=== PATIENT | male | born 1980 | race Caucasian/White ===

== ENCOUNTER 2017-11-26 17:59 | Emergency (ER) | payer MEDICAID, OTHER ==
[2017-11-26] MEDS ORDERED: Levofloxacin 750 MG Tab ONE (21:33)
--- NOTE | 2017-11-26 22:09 | EDM.PDOC ---
ED HPI GENERAL MEDICAL PROBLEM - General Chief Complaint: Fever Stated Complaint: Cough, cold symptoms for many weeks Time Seen by Provider: 11/26/17 21:10 Source of Information: Reports: Patient History Limitations: Reports: No Limitations - History of Present Illness INITIAL COMMENTS - FREE TEXT/NARRATIVE: This is a 37yo M here for concerns of fever and chills, decreased appetite and feeling unwell for the past month. The symptoms have fluctuated with cough and congestion with sore throat and fever. All family members have the same symptoms. Onset: Gradual Duration: Week(s):, Constant, Waxing/Waning Location: Reports: Generalized - Related Data Allergies Allergy/AdvReac Type Severity Reaction Status Date / Time No Known Allergies Allergy Verified 11/26/17 21:00 Home Meds: Home Meds NK [No Known Home Meds] 11/26/17 [History] ED ROS GENERAL - Review of Systems Review Of Systems: ROS reveals no pertinent complaints other than HPI. ED EXAM, GENERAL - Physical Exam Exam: See Below Exam Limited By: No Limitations General Appearance: Alert, WD/WN, Mild Distress Eye Exam: Bilateral Eye: EOMI, PERRL Ears: Normal External Exam Ear Exam: Bilateral Ear: Canal Normal, TM normal Nose: Normal Inspection Throat/Mouth: Normal Inspection Head: Atraumatic, Normocephalic Neck: Normal Inspection Respiratory/Chest: No Respiratory Distress, Rhonchi Cardiovascular: Normal Peripheral Pulses, Regular Rate, Rhythm GI/Abdominal: Normal Bowel Sounds Extremities: Normal Inspection Neurological: Alert, Oriented, CN II-XII Intact Psychiatric: Normal Affect, Normal Mood Course - Vital Signs Last Recorded V/S: Last Vital Signs Temp 36.7 C 11/26/17 20:41 Pulse 93 11/26/17 20:41 Resp 18 11/26/17 20:41 BP 143/100 H 11/26/17 20:41 Pulse Ox 99 11/26/17 20:41 - Orders/Labs/Meds Meds: Medications Discontinued Medications Generic Name Dose Route Start Last Admin Trade Name Freq PRN Reason Stop Dose Admin Levofloxacin Confirm 11/26/17 21:33 11/26/17 21:39 Levaquin Administered 11/26/17 21:34 750 mg Dose Administration 750 mg .ROUTE .STK-MED ONE Oseltamivir Phosphate Confirm 11/26/17 22:36 Tamiflu Administered 11/26/17 22:37 Dose 75 mg .ROUTE .STK-MED ONE Departure - Departure Time of Disposition: 22:15 Disposition: Home, Self-Care 01 Condition: Good Clinical Impression: Influenza - Discharge Information Instructions: Levofloxacin tablets Referrals: PCP,None [Primary Care Provider] - Forms: ED Department Discharge Additional Instructions: Take Tamiflu 1 capsule twice a day until gone - Problem List Review Problem List Initiated/Reviewed/Updated: Yes - Assessment/Plan Plan: Discussed influenza and dosing of prophylactic dose and treatment. Due to patient's exposure and symptoms we will treat as influenza. Patient counseled on supportive care and therapy and f/u if any concerns.
[2017-11-26] MEDS ORDERED: Oseltamivir 75 MG Cap ONE (22:36)
== END 2017-11-26 22:51 | disposition home or self-care (01) ==
LOC: LB.ED 17:59
DX: J11.1 Influenza due to unidentified influenza virus with other respiratory manifestations (principal)
CPT/HCPCS: 87804; 99283; A9270